=== PATIENT | female | born 1970 | race Caucasian/White ===

== ENCOUNTER 2018-02-26 09:33 | Observation (INO) ==
[2018-02-26 09:47] LABS: Basophils # 0.1 K/mm3 (0-0.2); Basophils % 0.6 % (0.1-2.0); Eosinophils # 0.2 K/mm3 (0.0-0.4); Hematocrit 41.4 % (37.0-47.0); Hemoglobin 13.8 g/dL (12.2-16.2); Lymphocytes # 2.7 K/mm3 (0.7-4.5); Lymphocytes % 32.4 K/mm3 (10-50); Mean Corpuscular HGB Conc 33.4 g/dL (31.8-35.4); Mean Corpuscular Hemoglobin 29.9 pg (27.0-31.2); Mean Corpuscular Volume 89.5 fl (81-99); Mean Platelet Volume 7.4 fl (7.4-10.4); Monocytes # 0.3 K/mm3 (0.1-1.0); Monocytes % 3.9 % (1.7-9.3); Neutrophils # 5.1 K/mm3 (1.8-7.8); Platelet Count 261 K/mm3 (142-424); Red Blood Count 4.62 M/mm3 (4.20-5.40); Red Cell Distribution Width 13.7 % (11.5-17.5); White Blood Count 8.3 K/mm3 (4.8-10.8)
[2018-02-26 10:00] LABS: Anion Gap 9.3 mEq/L (5-15); Blood Urea Nitrogen 21 mg/dL (7-18); Calcium 8.6 mg/dL (8.5-10.1); Carbon Dioxide 30 mmol/L (21.0-32.0); Chloride 106 mmol/L (98-107); Glucose 99 mg/dL (74-106); Potassium 3.3 mmoL/L (3.5-5.1); Sodium 142 mmol/L (136-145)
--- NOTE | 2018-02-26 10:15 | Emergency Department Note ---
ED Disposition Clinical Impression: Chest pain, Tobacco use, Family history of early CAD, Unstable angina pectoris Disposition: Still a Patient Condition on Discharge: Fair Referrals: Isra Shirley [Primary Care Provider] - - Critical Care Critical Care Time: No Attestation: On 02/26/18, the high probability of a clinically significant, sudden or life threatening deterioration of the following system(s) required my full and direct attention, intervention and personal management. The time I documented below is in addition to time spent performing reported procedures but includes the foll owing listed in this critical care notation. Medical Decision Making - Medical Records Medical records reviewed: Yes: I reviewed the patient's medical records. - Zackery Inquiry Pt receiving controlled substance: No Zackery was queried for this patient: No Vital Signs: 02/26/18 09:33 02/26/18 09:45 02/26/18 10:05 Temperature 98.5 F Temperature Source Oral Pulse Rate [Apical] 85 89 90 Respiratory Rate 20 20 18 Blood Pressure [Right Arm] 151/115 H 146/98 H 143/80 H Blood Pressure Mean [Right Arm] 127 114 101 Blood Pressure Source [Right Arm] Automatic Cuff Automatic Cuff Automatic Cuff Blood Pressure Position [Right Arm] Sitting Sitting Sitting 02 Sat by Pulse Oximetry 97 98 97 Oxygen Delivery Method Room Air Nasal Cannula Nasal Cannula Oxygen Flow Rate (LPM) 2 2 02/26/18 10:35 02/26/18 11:25 Temperature Temperature Source Pulse Rate [Apical] 86 77 Respiratory Rate 18 Blood Pressure [Right Arm] 156/97 H 132/83 Blood Pressure Mean [Right Arm] 116 99 Blood Pressure Source [Right Arm] Automatic Cuff Automatic Cuff Blood Pressure Position [Right Arm] Sitting Sitting 02 Sat by Pulse Oximetry 95 94 L Oxygen Delivery Method Room Air Nasal Cannula Oxygen Flow Rate (LPM) 2 - Lab Data Lab Results 02/26/18 09:38: WBC 8.3, RBC 4.62, Hgb 13.8, Hct 41.4, MCV 89.5, MCH 29.9, MCHC 33.4, RDW 13.7, Plt Count 261, MPV 7.4, Neut % (Auto) 61.0, Lymph % (Auto) 32.4, [place] % (Auto) 3.9, Eos % (Auto) 2.0, Baso % (Auto) 0.6, Neut # (Auto) 5.1, Lymph # (Auto) 2.7, [place] # (Auto) 0.3, Eos # (Auto) 0.2, Baso # (Auto) 0.1 02/26/18 09:38: Sodium 142, Potassium 3.3 L, Chloride 106, Carbon Dioxide 30, Anion Gap 9.3, BUN 21 H, Creatinine 0.84, Estimated Creat Clear 101, Estimated GFR 73, Est GFR ( Amer) 88, Glucose 99, Calcium 8.6, Troponin I < 0.02 02/26/18 09:38: D-Dimer < 100 02/26/18 09:38: B-Natriuretic Peptide < 5 02/26/18 10:58: Troponin I < 0.02 Result diagrams: 02/26/18 09:38 02/26/18 09:38 Orders (Tests/Meds): ED MEDICATIONS Generic Name Dose Route Start Last Admin Trade Name Freq PRN Reason Stop Dose Admin Diphenhydramine HCl 50 mg 02/26/18 11:26 Benadryl 50mg/1ml Vial IV 02/26/18 11:27 ONCE ONE Fentanyl Citrate 50 mcg 02/26/18 11:26 Fentanyl 100mcg/2ml Vial IV 02/27/18 11:26 Q3MINP PRN Moderate to Severe Pain Fentanyl Citrate 25 mcg 02/26/18 11:26 Fentanyl 250mcg/5ml Vial IV 02/27/18 11:26 Q3MINP PRN Moderate to Severe Pain Fentanyl Citrate 50 mcg 02/26/18 11:26 Fentanyl 250mcg/5ml Vial IV 02/27/18 11:26 Q3MINP PRN Moderate to Severe Pain Fentanyl Citrate 25 mcg 02/26/18 11:26 Fentanyl 100mcg/2ml Vial IV 02/27/18 11:26 Q3MINP PRN Moderate to Severe Pain Flumazenil 0.2 mg 02/26/18 11:26 Romazicon 0.1mg/Ml 5ml Vial IV 02/26/18 23:00 NEEDED PRN Sedation Heparin Sodium (Porcine) 10,000 unit 02/26/18 11:26 Heparin 1,000 Units/Ml 10ml Vial (News Editor) IV 02/26/18 15:26 NEEDED PRN Emergency Box Line Maintainer Heparin Sodium/Sodium Chloride 3,000 unit 02/26/18 11:26 Heparin 1000 Units/500ml Ns (News Editor) IV 02/26/18 11:27 ONCE ONE Sodium Chloride 1,000 mls @ 25 mls/hr 02/26/18 11:30 Sod Chlor 0.9% 1000ml Bag IV 02/27/18 11:26 .Q25H KELSEY Lidocaine HCl 20 ml 02/26/18 11:26 Lidocaine 1% 20ml Mdv IJ 02/26/18 11:27 ONCE ONE Midazolam HCl 1 mg 02/26/18 11:26 Midazolam 1mg/Ml 5ml Vial IV 02/27/18 11:26 Q3MINP PRN Sedation Midazolam HCl 1 mg 02/26/18 11:26 Midazolam 2mg/2ml Vial IV 02/27/18 11:26 Q3MINP PRN Sedation Naloxone HCl 0.4 mg 02/26/18 11:26 Narcan 0.4mg/Ml Vial IV 02/27/18 11:26 Q5MINP PRN Decreased respirations Nitroglycerin 800 mcg 02/26/18 11:26 Nitroglycerin 800mcg/8ml Syr (News Editor) IV 02/27/18 11:26 NEEDED PRN Emergency Box Line Maintainer Verapamil HCl 2.5 mg 02/26/18 11:26 Verapamil 2.5mg/Ml 2ml Vial IV 02/26/18 11:27 ONCE ONE Discontinued Medications Generic Name Dose Route Start Last Admin Trade Name Freq PRN Reason Stop Dose Admin Aspirin 324 mg 02/26/18 09:37 02/26/18 09:40 Aspirin 81mg Chewable Tablet PO 02/26/18 09:38 324 mg ONCE ONE Administration Nitroglycerin 0.4 mg 02/26/18 09:37 02/26/18 09:40 Nitrostat 0.4mg Sl Tablet SL 02/26/18 09:38 0.4 mg ONCE ONE Administration Nitroglycerin 0.4 mg 02/26/18 09:47 02/26/18 09:48 Nitrostat 0.4mg Sl Tablet SL 02/26/18 09:48 0.4 mg ONCE ONE Administration Ondansetron HCl 4 mg 02/26/18 09:43 02/26/18 09:44 Zofran 4mg/2ml Vial IV 02/26/18 09:44 4 mg ONCE ONE Administration Potassium Chloride 40 meq 02/26/18 10:20 02/26/18 10:36 Klor-Con 20meq Tablet PO 02/26/18 10:21 40 meq ONCE ONE Administration - Radiology Data #1 Image(s): Chest Image Reviewed: Yes I reviewed the patient's radiology image, Yes I have reviewed radiologist's interpretation Preliminary Findings: Normal/NAD - ECG Data Tracing #1 Normal sinus rhythm 83/min. No acute finding. ECG initial impression date: 02/26/18 ECG initial impression time: 09:35 Medical Decision Narrative: Patient had a recurrence of her chest pain she was given nitroglycerin paste with resolution of her pain repeated a second troponin was 0.2. I contacted the program clerk Dr. Cardozo who advised that she be admitted to the medical service for possible catheterization. I contacted injection molding supervisor for unassigned Dr. Anthony who is out of town so I spoke with Dr. Rehman to admit the patient. Patient was agreeable for admission understood the benefits and the risks. [address] Anthony cold and he accepted the patient to his service. Chest Pain HPI - General Chief Complaint: Chest Pain Stated Complaint: chest pain Time Seen by Provider: 02/26/18 09:35 Mode of Arrival: Ambulatory Limitations: No Limitations Description of Symptoms (Recalled from ER Triage Doc. by RN): Pt reports sharp chest pain and pressure/tightness that began approx 0850 this morning. Pt also reports nausea. Pt reports she was sitting at her desk at work when pain began - History of Present Illness HPI narrative: 47 years old white female smoker with a positive family history of coronary artery disease her father had a sudden AL at age of 41. Today at 8: 50 AM, she developed sudden onset of chest pain followed by chest heaviness and lasted until she arrived to the ED and received enteric-coated aspirin and nitroglycerin x2. Her initial EKG was negative for acute changes and became chest pain-free. He denies having dyspnea palpitations hemoptysis hematemesis coffee-ground emesis melanotic stool or bleeding per rectum. He does have situational depression she takes Adderall, Cymbalta and ibuprofen. MD complaint: chest pain indicative of cardiac Onset (ago): minute(s) Time: 08:50 Duration: now resolved Activity at onset: during rest Pain location: substernal Severity: moderate Severity scale (1-10): 6 Quality: tightness, sharp Pain radiation: LUE Relieving factors: nitroglycerin Exacerbating factors: nothing Risk Factors for CAD: Family Hx of CAD, Smoking Treatments prior to or on arrival for Cardiac Chest Pain: none - Related Data Home Medications Medication Instructions Recorded Confirmed duloxetine 60 mg capsule,delayed 60 mg PO DAILY cap 11/14/17 release omeprazole 40 mg capsule,delayed 40 mg PO BID cap 11/14/17 release Allergies Allergy/AdvReac Type Severity Reaction Status Date / Time metoclopramide [From REGLAN] Allergy Unknown ESOPHAGEAL Verified 02/26/18 09:42 SPASMS prochlorperazine Allergy Unknown ESOPHAGEAL Verified 02/26/18 09:42 [From COMPAZINE] SPASMS [facility] History I have reviewed the patient's past medical history: Yes Medical History: Denies:: Diabetes Mellitus Type 1, Diabetes Mellitus Type 2 Laterality Cases: Right: Carpal Tunnel Release Other Surgeries: Yes: Appendectomy, Cholecystectomy, Hysterectomy-Partial, Tubal Ligation Comment: TNA - Social History Smoking Status: Current every day smoker Tobacco Type: cigarettes # Packs/Day (cigarettes): 1 Alcohol Intake: never Alcohol Intake Frequency:: holidays/special occasions only Substance Use Type: denies use - Psychiatric History Expresses thoughts of harming self/others: None Suicide Plan Description: No Plan Family Hx:: Cancer, Heart Attack ROS Obtained: Yes All systems reviewed & no additional complaints Physical Exam - General General appearance: alert, in no apparent distress - Head Head exam: atraumatic, normocephalic, normal inspection - Eye Eye exam: Present: normal appearance, PERRL, EOMI - ENT ENT exam: Present: normal exam, normal oropharynx, mucous membranes moist, TM's normal bilaterally, normal external ear exam - Neck Neck exam: Present: normal inspection, full ROM, trachea midline. Absent: tenderness, meningismus, lymphadenopathy - Chest Chest inspection: Present: normal inspection, symmetric chest wall rise. Absent: tenderness - Respiratory Respiratory exam: Present: normal lung sounds bilaterally. Absent: respiratory distress, wheezes - Cardiovascular Cardiovascular exam: Present: regular rate, normal rhythm, normal heart sounds. Absent: JVD - Abdominal Exam Abdominal exam: Present: soft, normal bowel sounds. Absent: distention, tenderness, guarding, rebound, rigidity - Extremities Exam Extremities exam: Present: normal inspection, full ROM, normal capillary refill. Absent: tenderness, calf tenderness - Back Exam Back exam: Present: normal inspection. Absent: tenderness, CVA tenderness (R), CVA tenderness (L), paraspinal tenderness - Neurological Exam Neurological exam: Present: alert, oriented X3, CN II-XII intact, motor sensory deficit, reflexes normal - Psychiatric Psychiatric exam: Present: normal affect, normal mood - Skin Skin exam: Present: warm, dry, intact, normal color - Lymphatic Lymphatic Findings: no adenopathy
--- NOTE | 2018-02-26 12:52 | Consult Report ---
History of Present Illness Consult date: 02/26/18 Consult reason: chest pain Chief complaint: Chest pain, SOA Additional Medical History:: 1. Smoker, 1 pack per 3 days per patient 2. HTN 3. FH of CAD 4. Cardiac cath, 02/26/2018, normal coronary arteries with elevated left ventricular end-diastolic pressure at 30 mmHg. 5. Chronic low back pain with daily ibuprofen use History of present illness: 47 years old white female smoker with a positive family history of coronary artery disease her father had a sudden NV at age of 41. Today at 8: 50 AM, she developed sudden onset of chest pain followed by chest heaviness and lasted until she arrived to the ED and received enteric-coated aspirin and nitroglycerin x2. Her initial EKG was negative for acute changes and became chest pain-free. He denies having dyspnea palpitations hemoptysis hematemesis coffee-ground emesis melanotic stool or bleeding per rectum. He does have situational depression she takes Adderall, Cymbalta and ibuprofen. The above per Dr. Knight, ER physician [facility] History Medical History: Reports:: Hypertension Denies:: Diabetes Mellitus Type 1, Diabetes Mellitus Type 2 Laterality Cases: Right: Carpal Tunnel Release Other Surgeries: Yes: Appendectomy, Cholecystectomy, Hysterectomy-Partial, Tubal Ligation - *Social History Smoking Status: Current every day smoker Tobacco Type: cigarettes # Packs/Day (cigarettes): 1 Alcohol Intake: never Alcohol Intake Frequency:: holidays/special occasions only Substance Use Type: denies use - Psychiatric History Expresses thoughts of harming self/others: None Suicide Plan Description: No Plan *Family Hx:: Cancer, Heart Attack Meds Home Medications Medication Instructions Recorded Confirmed Type duloxetine 60 mg capsule,delayed 60 mg PO HS cap 11/14/17 02/26/18 History release omeprazole 40 mg capsule,delayed 40 mg PO HS cap 11/14/17 02/26/18 History release Dextroamphetamine/Amphetamine 15 mg PO BID 02/26/18 02/26/18 History [Adderall 15 mg Tablet] Ibuprofen [Ibuprofen 800mg 800 mg PO TID 02/26/18 02/26/18 History Tablet] Trazodone HCl 50 mg PO HS 02/26/18 02/26/18 History Allergies Allergy/AdvReac Type Severity Reaction Status Date / Time metoclopramide [From REGLAN] Allergy Unknown ESOPHAGEAL Verified 02/26/18 09:42 SPASMS prochlorperazine Allergy Unknown ESOPHAGEAL Verified 02/26/18 09:42 [From COMPAZINE] SPASMS Review of Systems - *Cardiovascular Reports chest pain, Reports shortness of breath - *Respiratory Reports shortness of breath - *Gastrointestinal Denies abdominal pain - *Genitourinary Denies blood in urine - *Neurologic Denies abnormal walking, Denies abnormal speech, Denies seizure-like activity Exam Vital signs and Labs for Last 24 Hours: Temp Pulse Resp BP Pulse Ox 98.2 F 82 20 139/94 H 100 02/26/18 11:44 02/26/18 12:31 02/26/18 12:31 02/26/18 12:31 02/26/18 12:31 Laboratory Results - last 24 hr 02/26/18 09:38: WBC 8.3, RBC 4.62, Hgb 13.8, Hct 41.4, MCV 89.5, MCH 29.9, MCHC 33.4, RDW 13.7, Plt Count 261, MPV 7.4, Neut % (Auto) 61.0, Lymph % (Auto) 32.4, [place] % (Auto) 3.9, Eos % (Auto) 2.0, Baso % (Auto) 0.6, Neut # (Auto) 5.1, Lymph # (Auto) 2.7, [place] # (Auto) 0.3, Eos # (Auto) 0.2, Baso # (Auto) 0.1 02/26/18 09:38: Sodium 142, Potassium 3.3 L, Chloride 106, Carbon Dioxide 30, Anion Gap 9.3, BUN 21 H, Creatinine 0.84, Estimated Creat Clear 101, Estimated GFR 73, Est GFR ( Amer) 88, Glucose 99, Calcium 8.6, Troponin I < 0.02 02/26/18 09:38: D-Dimer < 100 02/26/18 09:38: B-Natriuretic Peptide < 5 02/26/18 10:58: Troponin I < 0.02 I & O for Last 24 hours: Intake & Output 02/24/18 02/25/18 02/26/18 02/27/18 11:59 11:59 11:59 11:59 Weight 170 lb - *Routine Neck Exam Present: supple. Absent: JVD, carotid bruit - *Routine Respiratory Exam Present: CTA bilaterally. Absent: accessory muscle use, rales, rhonchi, wheezes - *Routine Cardiovascular Exam Present: RRR, murmur. Absent: gallop, rubs Comments: Grade 1/6 to 2/6 systolic ejection murmur heard at the sternal border - *Routine Abdominal Exam Present: soft. Absent: tenderness, distended, guarding - *Routine Extremities Exam Absent: edema, calf tenderness - *Routine Neurological Exam Present: alert, oriented X3, moving all extremities Assessment and Plan (1) Chest pain Current visit: Yes Status: Acute Category: Medical Code(s): R07.9 - Chest pain, unspecified (2) Family history of early CAD Current visit: Yes Status: Acute Category: Medical Code(s): Z82.49 - Family history of ischemic heart disease and other diseases of the circulatory system (3) Tobacco use Current visit: Yes Status: Acute Category: Medical Code(s): Z72.0 - Tobacco use - Assessment and plan all Dx Assessment and Plan for all problems:: 1. Patient was taken from the ER to the cardiac Treater Helper with subsequent cardiac catheterization showing normal coronary arteries but elevated end- diastolic pressure. 2. We will obtain fasting lipids and, if needed treat, appropriately. 3. Patient takes ibuprofen 800 mg 3 times a day for chronic pain which may be a major reason for her elevated left ventricular end-diastolic pressure. We will start with diuretic therapy and obtain an echocardiogram.
--- NOTE | 2018-02-26 20:58 | Cardiology Report ---
PROCEDURE: 2-D M-mode and color Doppler study INDICATIONS FOR THE TEST: Chest pain COPD Heart Murmur Tobacco Smoking+ Palpitations Fatigue Syncope Edema Hypertension+Diabetes Mellitus Rheumatic Fever SOB+SIMPSON Obesity Hyperlipidemia Family History HD Additional History PATIENT INFORMATION HEIGHT: 62 WEIGHT:176 GENDER: Female B/P: 2-D/M-MODE INTERPRETATION: 2-D MEASUREMENTS OBSERVED VALUES IN CMS Right Ventricular Dimension (RVDd) 2.3 Interventricular Septum (Thickness)(IVsd) 1.5 Left Ventricular Internal Dimensions(LVIDd) 5.0 Left Ventricular Posterior Wall (Thickness)(LVPWd) 0.8 Aortic Root 2.7 Aortic Cusp Separation 1.9 Left Atrial Dimensions (LAD) 3.6 2D 1. Left atrium is mildly enlarged, left ventricle is normal size, mild concentric left ventricular hypertrophy, visually estimated ejection fraction of 55% with no regional wall motion abnormality. 2. The right atrium and right ventricle are normal size and contractility. 3. The aortic valve is minimally thickened and fibrosed. 4. The mitral and tricuspid valvular grossly normal. 5. The pulmonic valve is poorly visualized. 6. No significant pericardial effusion noted. DOPPLER INTERROGATION: Doppler interrogation of the aortic, mitral and tricuspid valvular presence of mild mitral and tricuspid regurgitation, tricuspid regurgitation jet velocity is insufficient for calculation of the right ventricular systolic pressure, grade 1 diastolic dysfunction seen with tissue Doppler evidence of raised left atrial pressure. CONCLUSION: 1. Mildly enlarged left atrium, normal left ventricular size, mild concentric left ventricular hypertrophy, visually estimated ejection fraction 55% with no regional wall motion abnormality, grade 1 diastolic dysfunction seen with tissue Doppler evidence of raised left atrial pressure. 2. Mild mitral and tricuspid regurgitation 3. No significant pericardial effusion noted.
[2018-02-27 07:26] LABS: Chol/HDL Ratio 6.4 (1-3.5)
--- NOTE | 2018-02-27 07:43 | Pharmacy Consult Notes ---
[facility] Pharmacy VTE Monitoring - Patient Demographics Admission date: 02/26/18 Report Date: 02/27/18 Time: 07:43 Allergies/Adverse Reactions: Patient Allergies metoclopramide [From REGLAN] Allergy (Unknown, Verified 02/26/18 09:42) ESOPHAGEAL SPASMS prochlorperazine [From COMPAZINE] Allergy (Unknown, Verified 02/26/18 09:42) ESOPHAGEAL SPASMS Height: 1.57 m Weight: 103.164 kg Patient Problems: Current Active Problems Chest pain (Acute) Tobacco use (Acute) Family history of early CAD (Acute) Elevated left ventricular end-diastolic pressure (LVEDP) (Acute) - VTE Risk Labs: VTE Related Lab Results Hgb 13.8 g/dL (12.2-16.2) 02/26/18 09:38 Hct 41.4 % (37.0-47.0) 02/26/18 09:38 Plt Count 261 K/mm3 (142-424) 02/26/18 09:38 BUN 21 mg/dL (7-18) H 02/26/18 09:38 Creatinine 0.84 mg/dL (0.55-1.02) 02/26/18 09:38 Estimated Creat Clear 101 mL/min (0-300) 02/26/18 09:38 Was VTE Risk Assessment Performed: Yes VTE Score: 1 VTE Risk Level: Very Low Risk - Prophylaxis VTE Prophylaxis Ordered?: Yes Types of VTE Prophylaxis: TEDS Knee High Location of Applied Device: Bilateral Lower Extremeties - VTE Diagnosis Confirmed Treatment or plan recommended: Continue Current Treatment
--- NOTE | 2018-02-27 08:18 | Progress Note ---
Subjective Date: 02/27/18 Time: 08:15 Principal diagnosis: SOA, CP Interval history: 47 yo WF in bed in NAD. Feels tired but SOA better and no CP. History of beta tita use stopped due to fatigue but willing to try it again. Anxious to go home and get back to work. Exam Vital signs and Labs for Last 24 Hours: Temp Pulse Resp BP Pulse Ox 97.5 F L 73 18 146/88 H 95 02/27/18 07:28 02/27/18 07:28 02/27/18 07:28 02/27/18 07:28 02/27/18 07:28 Laboratory Results - last 24 hr 02/26/18 09:38: WBC 8.3, RBC 4.62, Hgb 13.8, Hct 41.4, MCV 89.5, MCH 29.9, MCHC 33.4, RDW 13.7, Plt Count 261, MPV 7.4, Neut % (Auto) 61.0, Lymph % (Auto) 32.4, [place] % (Auto) 3.9, Eos % (Auto) 2.0, Baso % (Auto) 0.6, Neut # (Auto) 5.1, Lymph # (Auto) 2.7, [place] # (Auto) 0.3, Eos # (Auto) 0.2, Baso # (Auto) 0.1 02/26/18 09:38: Sodium 142, Potassium 3.3 L, Chloride 106, Carbon Dioxide 30, Anion Gap 9.3, BUN 21 H, Creatinine 0.84, Estimated Creat Clear 101, Estimated GFR 73, Est GFR ( Amer) 88, Glucose 99, Calcium 8.6, Troponin I < 0.02 02/26/18 09:38: D-Dimer < 100 02/26/18 09:38: B-Natriuretic Peptide < 5 02/26/18 10:58: Troponin I < 0.02 02/26/18 14:45: Troponin I < 0.02 02/26/18 17:35: Troponin I < 0.02 02/27/18 06:53: Triglycerides 212 H, Cholesterol 230 H, LDL Cholesterol 152 H, VLDL Cholesterol 42 H, HDL Cholesterol 36, Cholesterol/HDL Ratio 6.4 H I & O for Last 24 hours: Intake & Output 02/24/18 02/25/18 02/26/18 10/09/18 11:59 11:59 11:59 11:59 Intake Total 610 / 610 Balance 610 / 610 Weight 170 lb 227 lb 7 oz - *Routine Respiratory Exam Present: CTA bilaterally. Absent: accessory muscle use, rales, rhonchi, wheezes - *Routine Cardiovascular Exam Present: RRR. Absent: murmur, gallop, rubs - *Routine Neurological Exam Present: alert, oriented X3, moving all extremities Progress Note: A&P (1) Chest pain Status: Acute Current Visit: Yes (2) Family history of early CAD Status: Acute Current Visit: Yes (3) Tobacco use Status: Acute Current Visit: Yes (4) Elevated left ventricular end-diastolic pressure (LVEDP) Status: Acute Current Visit: Yes Assessment and Plan for All Diagnoses:: Echo shows early changes of Hypertensive heart disease with hyperdynamic function and concentric LVH. Continue furosemide and spironolactone. Instructed her that if she has recurrent fatigue on beta tita, then decrease dose to 1/2 and keep follow up next week. OK to return to work with limited use of right wrist for one week.
--- NOTE | 2018-03-01 13:20 | H&P/Discharge Summary ---
General - General Admission date:: 02/26/18 Discharge date: 02/27/18 *Admission Date: 02/27/18 *Chief complaint: Chest pain *History of present illness: 47 years old white female smoker with a positive family history of coronary artery disease her father had a sudden [place] at age of 41. Today at 8: 50 AM, she developed sudden onset of chest pain followed by chest heaviness and lasted until she arrived to the ED and received enteric-coated aspirin and nitroglycerin x2. Her initial EKG was negative for acute changes and became chest pain-free. SHe denies having dyspnea palpitations hemoptysis hematemesis coffee-ground emesis melanotic stool or bleeding per rectum. [facility] History I have reviewed the patient's past medical history: Yes Medical History: Reports:: Depression, Hypertension Denies:: Diabetes Mellitus Type 1, Diabetes Mellitus Type 2 Comment: Attention deficit disorder with long-term stimulant use, bilateral hand arthralgias Laterality Cases: Right: Carpal Tunnel Release Other Surgeries: Yes: Appendectomy, Cholecystectomy, Hysterectomy-Partial, Tubal Ligation - *Social History Smoking Status: Current every day smoker Tobacco Type: cigarettes # Packs/Day (cigarettes): 6 Alcohol Intake: never Alcohol Intake Frequency:: holidays/special occasions only Substance Use Type: denies use Occupational Status: employed - Psychiatric History Expresses thoughts of harming self/others: None Suicide Plan Description: No Plan *Family Hx:: Cancer, Heart Attack Review of Systems - Review of Systems Review of systems:: pertinent systems reviewed and negative unless documented below - Constitutional Denies body ache(s), Denies chills - *Cardiovascular Reports chest pain, Reports chest pain at rest, Denies radiating jaw, neck or arm pain - *Respiratory Denies chest congestion, Denies cough - *Neurologic Denies abnormal walking, Denies abnormal speech, Denies seizure-like activity Exam Vital signs and Labs for Last 24 Hours: Temp Pulse Resp BP Pulse Ox 97.8 F 69 20 133/86 96 02/27/18 04:00 02/27/18 04:00 02/27/18 04:00 02/27/18 04:00 02/27/18 04:00 Laboratory Results - last 24 hr 02/26/18 09:38: WBC 8.3, RBC 4.62, Hgb 13.8, Hct 41.4, MCV 89.5, MCH 29.9, MCHC 33.4, RDW 13.7, Plt Count 261, MPV 7.4, Neut % (Auto) 61.0, Lymph % (Auto) 32.4, [place] % (Auto) 3.9, Eos % (Auto) 2.0, Baso % (Auto) 0.6, Neut # (Auto) 5.1, Lymph # (Auto) 2.7, [place] # (Auto) 0.3, Eos # (Auto) 0.2, Baso # (Auto) 0.1 02/26/18 09:38: Sodium 142, Potassium 3.3 L, Chloride 106, Carbon Dioxide 30, Anion Gap 9.3, BUN 21 H, Creatinine 0.84, Estimated Creat Clear 101, Estimated GFR 73, Est GFR ( Amer) 88, Glucose 99, Calcium 8.6, Troponin I < 0.02 02/26/18 09:38: D-Dimer < 100 02/26/18 09:38: B-Natriuretic Peptide < 5 02/26/18 10:58: Troponin I < 0.02 02/26/18 14:45: Troponin I < 0.02 02/26/18 17:35: Troponin I < 0.02 I & O for Last 24 hours: Intake & Output 02/24/18 02/25/18 02/26/18 02/27/18 11:59 11:59 11:59 11:59 Intake Total 370 / 370 Balance 370 / 370 Weight 170 lb 227 lb 7 oz - Constitutional no acute distress - *Routine HEENT Exam Head: Present: normocephalic Eye: Present: PERRL ENT: Present: mucous membranes moist - *Routine Neck Exam Present: supple, full ROM. Absent: JVD, lymphadenopathy - *Routine Respiratory Exam Present: CTA bilaterally - *Routine Cardiovascular Exam Present: RRR, Normal S1, Normal S2 - *Routine Extremities Exam Present: full ROM Hospital Course Hospital Course: Patient was taken from the emergency department to the Medical Practice Manager. She underwent left heart catheterization with impression and plan as follows: IMPRESSION: 1. Normal coronary arteries 2. Moderate to severe diastolic dysfunction with hyperdynamic ventricle and severely elevated LVEDP PLAN: 1. Medical management 2. High dose beta blockers artery control rate 3. Possible diltiazem or verapamil combined with beta blockers 4. Diuretics in order to decrease EDP 5. Control of hypertension and associated risk factors After the patient's heart catheterization she was started on spironolactone and metoprolol. Patient was monitored overnight and had no further episodes of chest pain. She was discharged home on February 27. Patient will follow-up with cardiology per their instructions. She will follow-up in my office in 2 weeks. Results Labs on day of discharge: Labs from last 24 hours 02/26/18 02/26/18 02/26/18 17:35 14:45 10:58 WBC RBC Hgb Hct MCV MCH MCHC RDW Plt Count MPV Neut % (Auto) Lymph % (Auto) [place] % (Auto) Eos % (Auto) Baso % (Auto) Neut # (Auto) Lymph # (Auto) [place] # (Auto) Eos # (Auto) Baso # (Auto) D-Dimer Sodium Potassium Chloride Carbon Dioxide Anion Gap BUN Creatinine Estimated Creat Clear Estimated GFR Est GFR ( Amer) Glucose Calcium Troponin I < 0.02 < 0.02 < 0.02 B-Natriuretic Peptide 02/26/18 02/26/18 02/26/18 09:38 09:38 09:38 WBC RBC Hgb Hct MCV MCH MCHC RDW Plt Count MPV Neut % (Auto) Lymph % (Auto) [place] % (Auto) Eos % (Auto) Baso % (Auto) Neut # (Auto) Lymph # (Auto) [place] # (Auto) Eos # (Auto) Baso # (Auto) D-Dimer < 100 Sodium 142 Potassium 3.3 L Chloride 106 Carbon Dioxide 30 Anion Gap 9.3 BUN 21 H Creatinine 0.84 Estimated Creat Clear 101 Estimated GFR 73 Est GFR ( Amer) 88 Glucose 99 Calcium 8.6 Troponin I < 0.02 B-Natriuretic Peptide < 5 02/26/18 09:38 WBC 8.3 RBC 4.62 Hgb 13.8 Hct 41.4 MCV 89.5 MCH 29.9 MCHC 33.4 RDW 13.7 Plt Count 261 MPV 7.4 Neut % (Auto) 61.0 Lymph % (Auto) 32.4 [place] % (Auto) 3.9 Eos % (Auto) 2.0 Baso % (Auto) 0.6 Neut # (Auto) 5.1 Lymph # (Auto) 2.7 [place] # (Auto) 0.3 Eos # (Auto) 0.2 Baso # (Auto) 0.1 D-Dimer Sodium Potassium Chloride Carbon Dioxide Anion Gap BUN Creatinine Estimated Creat Clear Estimated GFR Est GFR ( Amer) Glucose Calcium Troponin I B-Natriuretic Peptide DS: Diagnosis - Discharge Diagnosis (1) Chest pain Status: Acute (2) Family history of early CAD Status: Acute (3) Tobacco use Status: Acute (4) Elevated left ventricular end-diastolic pressure (LVEDP) Status: Acute Discharge Medications - Medications for Discharge Home Medication List at Discharge: No Action Ibuprofen [Ibuprofen 800mg Tablet] 800 mg PO TID Trazodone HCl 50 mg PO HS Dextroamphetamine/Amphetamine [Adderall 15 mg Tablet] 15 mg PO BID Disposition Disposition: Home, Self-Care
== END 2018-02-27 11:30 | disposition home or self-care (01) ==
LOC: ER 09:33 → 2ND 11:42 → CATHLAB 11:42
PROVIDERS: ADMIT Family Medicine; ATTEND Family Medicine